=== PATIENT | female | born 1985 | race Caucasian/White ===

== ENCOUNTER 2021-08-20 09:09 | Emergency (ER) | payer BC ==
[~2021-08-20] VITALS: Ht 162.6 cm; Wt 99.0 kg
[2021-08-20 09:13] VITALS: BP 124/71
[2021-08-20] MEDS ORDERED: APIX5TAB3 PO (13:33)
== END 2021-08-20 13:42 | disposition home or self-care (01) ==
LOC: ER 09:09
DX: I82.611 Acute embolism and thrombosis of superficial veins of right upper extremity (principal); I86.8 Varicose veins of other specified sites; F17.200 Nicotine dependence, unspecified, uncomplicated
CPT/HCPCS: 93971; 99284